=== PATIENT | female | born 2000 | race Hispanic/Latino ===

== ENCOUNTER 2025-03-16 15:21 | Inpatient (IN) | payer OTHER, SELFPAY ==
[2025-03-16 15:56] VITALS: BMI 45.5
[2025-03-16] MEDS ORDERED: hydrALAZINE 20 MG/ML VIAL SLOW IVP PRN ×3 (16:08→20:52)
[2025-03-16 16:35] LABS: #Basophils 0.04 10x3/uL (0.0-0.2); #Eosinophils 0.13 10x3/uL (0.0-0.5); #Monocytes 0.59 10x3/uL (0.0-1.1); #Neutrophils 6.42 10x3/uL (1.5-8.4); %Basophils 0.4 % (0.0-2.0); %Eosinophils 1.3 % (0.0-6.0); %Lymphocytes 28.6 % (18.0-47.0); %Monocytes 5.8 % (0.0-10.0); %Neutrophils 63.5 % (40.0-75.0); Hematocrit 38.3 % (34.9-44.5); Hemoglobin 12.7 g/dL (12.0-15.5); Mean Corpuscular Hemoglobin 26.3 pg (27.0-33.0); Mean Corpuscular Volume 79.5 fL (81.6-98.3); Platelet Count 275 10x3/uL (150-450); Red Blood Cell (RBC) Count 4.82 10x6/uL (3.90-5.03); White Blood Cell (WBC) Count 10.11 10x3/uL (3.5-10.5)
[2025-03-16 16:38] LABS: Protein, Urine Random Quant 28.0 mg/dL (1-14)
[2025-03-16 16:58] LABS: ALT (SGPT) 7 U/L (Less than 34); AST (SGOT) 22 U/L (11-34); Albumin 2.9 g/dL (3.1-4.5); Alkaline Phosphatase 247 U/L (40-110); Anion Gap 12 mmol/L (10-20); BUN (Urea Nitrogen) 9 mg/dL (7.0-18.7); Bilirubin, Total 0.3 mg/dL (0.3-1.2); Calc. Creatinine Clearance 302 mL/min (70-130); Calcium 8.8 mg/dL (7.8-10.44); Carbon Dioxide 19 mmol/L (22-29); Chloride 105 mmol/L (98-107); Globulin 4.1 g/dL (2.4-3.5); Glucose 73 mg/dL (70-105); Potassium 4.2 mmol/L (3.5-5.1); Sodium 132 mmol/L (136-145)
[2025-03-16] MEDS ORDERED: Ibuprofen 800 MG TAB PO PRN (18:19)
[2025-03-16] MEDS ORDERED: Ondansetron PF 4 MG/2 ML Vial IVP PRN ×2 (18:19→20:12)
[2025-03-16] MEDS ORDERED: Lidocaine 1% (PF) 30 ML VIAL SC PRN (18:19)
[2025-03-16] MEDS ORDERED: Diphenoxylate HCl/Atropine Tablet PO PRN (18:19)
[2025-03-16] MEDS ORDERED: HYDROcodone/Acetaminophen 5/325 mg Tablet PO PRN ×2 (18:19)
[2025-03-16] MEDS ORDERED: Carboprost 250 MCG/ML AMP IM PRN (18:19)
[2025-03-16] MEDS ORDERED: Tranexamic Acid 1,000 MG/10 ML VIAL IVP PRN (18:19)
[2025-03-16] MEDS ORDERED: Famotidine/PF 20 mg/2ml Vial SLOW IVP PRN (18:26)
[2025-03-16] MEDS ORDERED: Bicitra 30 ML UDCUP PO PRN (18:26)
[2025-03-16] MEDS ORDERED: Oxytocin 30 units/NS 500 ML 500 ML IV SCH ×2 (18:30→22:14)
[2025-03-16] MEDS: fentaNYL/Ropivacaine Epidural 100 ML ONE (19:56)
[2025-03-16] MEDS ORDERED: Acetaminophen 325 MG TAB PO PRN (20:12)
[2025-03-16] MEDS ORDERED: diphenhydrAMINE 50 MG/ML VIAL IVP PRN (20:12)
[2025-03-16] MEDS ORDERED: Communication Order-Pharmacy FS SCH (20:15)
[2025-03-16 20:29] LABS: Hep B Surf Ag - L&D Non-Reactive S/CO (NonReactive)
[2025-03-16 20:35] LABS: Syphilis Antibody Index 0.07 S/CO (<1.00 Non-Reactive)
[2025-03-16] MEDS ORDERED: Calcium Gluc 4.6 MEQ/10 ML (100 MG/ML) SLOW IVP PRN (20:52)
[2025-03-16] MEDS: Magnesium Sulfate 20 gm/500 ml 20 GM/500 ML BAG IVPB SCH (21:00)
[2025-03-16] MEDS: Mineral Oil ENEMA PR SCH (21:25)
[2025-03-16 21:56] LABS: Magnesium 1.7 mg/dL (1.6-2.6)
[2025-03-17] MEDS ORDERED: fentaNYL/Ropivacaine Epidural 100 ML ONE (07:42)
[2025-03-17] MEDS: fentaNYL 2 mcg/Ropivacaine 0.2% Epidural 100 ML CADD EPIDURAL SCH (07:43)
[2025-03-17] MEDS: Magnesium Sulfate 20 gm/500 ml 20 GM/500 ML BAG ONE (11:39)
[2025-03-18] MEDS ORDERED: diphenhydrAMINE 50 MG/ML VIAL IVP PRN ×2 (07:02→11:22)
[2025-03-18] MEDS ORDERED: Ondansetron PF 4 MG/2 ML Vial IVP PRN ×4 (07:02→11:22)
[2025-03-18] MEDS: fentaNYL/Ropivacaine Epidural 100 ML ONE (07:02)
[2025-03-18] MEDS ORDERED: fentaNYL 2 mcg/Ropivacaine 0.2% Epidural 100 ML CADD EPIDURAL SCH (07:15)
[2025-03-18] MEDS ORDERED: Communication Order-Pharmacy FS SCH ×2 (07:15→11:30)
[2025-03-18] MEDS: Acetaminophen 325 MG TAB PO PRN (08:44)
[2025-03-18 08:55] LABS: ALT (SGPT) 8 U/L (Less than 34); AST (SGOT) 20 U/L (11-34); Albumin 2.5 g/dL (3.1-4.5); Alkaline Phosphatase 227 U/L (40-110); Anion Gap 15 mmol/L (10-20); BUN (Urea Nitrogen) 8 mg/dL (7.0-18.7); Bilirubin, Total 0.7 mg/dL (0.3-1.2); Calc. Creatinine Clearance 250 mL/min (70-130); Calcium 8.1 mg/dL (7.8-10.44); Carbon Dioxide 17 mmol/L (22-29); Chloride 105 mmol/L (98-107); Globulin 3.6 g/dL (2.4-3.5); Glucose 103 mg/dL (70-105); Magnesium 3.2 mg/dL (1.6-2.6); Potassium 3.6 mmol/L (3.5-5.1); Sodium 133 mmol/L (136-145)
[2025-03-18] MEDS ORDERED: Azithromycin 500 MG in Sodium Chloride 0.9% 250 ML 250 ML IVPB SCH (09:00)
[2025-03-18 10:18] LABS: Analyzer IN Cardio CS NICU; RapidComm Collect By CBN
[2025-03-18 10:21] LABS: Analyzer IN Cardio CS NICU; RapidComm Collect By CBN; pH (Cord, venous) 7.320 (7.250-7.350)
[2025-03-18] MEDS ORDERED: Bupivacaine/Epinephrine 0.25% 30 ML VIAL ONE (11:00)
[2025-03-18] MEDS ORDERED: Boostrix 0.5 ML (Tdap) VIAL (>/=7 yrs of age) IM ONE (11:08)
[2025-03-18] MEDS ORDERED: hydrALAZINE 20 MG/ML VIAL SLOW IVP PRN (11:08)
[2025-03-18] MEDS ORDERED: Meperidine HCl/PF 25 MG (1 mL) VIAL SLOW IVP PRN (11:22)
[2025-03-18] MEDS ORDERED: Diphenoxylate HCl/Atropine Tablet PO PRN (11:30)
[2025-03-18] MEDS: Diphenoxylate HCl/Atropine Tablet PO PRN (11:45)
[2025-03-18] MEDS ORDERED: Ketorolac Tromethamine 30 MG (1 mL) VIAL IVP SCH (12:00)
[2025-03-18] MEDS: GENTAMICIN IVPB SCH (12:42)
[2025-03-18] MEDS: SODIUM CHLORIDE IVPB SCH (12:42)
[2025-03-18] MEDS: ADMIXTURE FEE IVPB SCH (12:42)
[2025-03-18] MEDS: Furosemide 40 MG (4 mL) VIAL SLOW IVP SCH (13:56)
[2025-03-18] MEDS: Ketorolac Tromethamine 30 MG (1 mL) VIAL IVP PRN (18:02)
[2025-03-18] MEDS: Clindamycin/D5W 900 MG in Premix 1 BAG IVPB SCH (18:31)
[2025-03-18] MEDS: HYDROcodone/Acetaminophen 5/325 mg Tablet PO PRN (22:18)
[2025-03-19] MEDS: Azithromycin 500 MG VIAL ONE (00:41)
[2025-03-19] MEDS: Oxytocin 10 UNITS/ML VIAL ONE ×2 (00:41→00:48)
[2025-03-19] MEDS: Ketorolac Tromethamine 30 MG (1 mL) VIAL ONE (00:42)
[2025-03-19] MEDS: Diphenoxylate HCl/Atropine Tablet PO SCH (00:42)
[2025-03-19] MEDS: Lidocaine 2% MPF 10 ML AMP (For Epidural Use) ONE (00:48)
[2025-03-19] MEDS: Ondansetron PF 4 MG/2 ML Vial ONE (00:48)
[2025-03-19] MEDS: PHENYLEPHRINE-NS 100 MCG/ML 10 ML SYRINGE ONE (00:48)
[2025-03-19] MEDS: Simethicone Chewable 80 MG TAB PO PRN ×2 (02:10→21:01)
[2025-03-19 05:03] LABS: Hematocrit 33.0 % (34.9-44.5); Hemoglobin 10.7 g/dL (12.0-15.5); Mean Corpuscular Hemoglobin 26.4 pg (27.0-33.0); Mean Corpuscular Volume 81.5 fL (81.6-98.3); Platelet Count 205 10x3/uL (150-450); Red Blood Cell (RBC) Count 4.05 10x6/uL (3.90-5.03); White Blood Cell (WBC) Count 14.16 10x3/uL (3.5-10.5)
[2025-03-19] MEDS: Magnesium Sulfate 20 gm/500 ml 20 GM/500 ML BAG IVPB SCH (08:04)
[2025-03-19] MEDS ORDERED: Magnesium Sulfate 20 gm/500 ml 20 GM/500 ML BAG IVPB SCH (08:15)
[2025-03-19] MEDS: Ferrous Sulfate 325 MG TAB PO SCH (09:34)
[2025-03-19] MEDS ORDERED: Ondansetron PF 4 MG/2 ML Vial IVP PRN (10:18)
[2025-03-19] MEDS ORDERED: diphenhydrAMINE 25 MG CAP PO PRN (10:18)
[2025-03-19] MEDS ORDERED: Acetaminophen 325 MG TAB PO PRN (10:18)
[2025-03-19] MEDS ORDERED: Methylergonovine 0.2 MG/ML VIAL IM PRN (10:18)
[2025-03-19] MEDS ORDERED: hydrALAZINE 20 MG/ML VIAL SLOW IVP PRN (10:18)
[2025-03-19] MEDS ORDERED: Oxytocin 30 units/NS 500 ML 500 ML IV SCH (10:30)
[2025-03-19] MEDS ORDERED: Boostrix 0.5 ML (Tdap) VIAL (>/=7 yrs of age) IM ONE (15:00)
[2025-03-19] MEDS: Magnesium Sulfate 20 gm/500 ml 20 GM/500 ML BAG ONE (15:55)
[2025-03-19] MEDS: HYDROcodone/Acetaminophen 5/325 mg Tablet PO PRN (16:00)
[2025-03-19] MEDS: Ibuprofen 800 MG TAB PO SCH (21:01)
[2025-03-19] MEDS ORDERED: Ibuprofen 800 MG TAB PO SCH (22:00)
[2025-03-20] MEDS: Ferrous Sulfate 325 MG TAB PO SCH (05:08)
[2025-03-20] MEDS ORDERED: Ibuprofen 800 MG TAB PO SCH (22:00)
[2025-03-21 07:52] VITALS: BP 135/74; TEMP 98
== END 2025-03-21 11:50 | disposition home or self-care (01) | DRG 786 ==
LOC: CSHLD/OP 15:21 → CSHLD 18:20 → CSHPP 03-19 14:16
PROVIDERS: ADMIT Obstetrics & Gynecology; ATTEND Obstetrics & Gynecology
PROC: 10907ZC Drainage of Amniotic Fluid, Therapeutic from Products of Conception, Via Natural or Artificial Opening (ICD-10-PCS; principal; 2025-03-16)
PROC: 10H07YZ Insertion of Other Device into Products of Conception, Via Natural or Artificial Opening (ICD-10-PCS; 2025-03-16)
PROC: 10D00Z1 Extraction of Products of Conception, Low, Open Approach (ICD-10-PCS; 2025-03-18)
PROC: 3E03329 Introduction of Other Anti-infective into Peripheral Vein, Percutaneous Approach (ICD-10-PCS; 2025-03-18)
DX: O14.14 Severe pre-eclampsia complicating childbirth (principal); O41.1230 Chorioamnionitis, third trimester, not applicable or unspecified; O32.1XX0 Maternal care for breech presentation, not applicable or unspecified; Z90.89 Acquired absence of other organs; Z3A.39 39 weeks gestation of pregnancy; Z37.0 Single live birth; O99.214 Obesity complicating childbirth; O76 Abnormality in fetal heart rate and rhythm complicating labor and delivery; O99.892 Other specified diseases and conditions complicating childbirth; R00.0 Tachycardia, unspecified
CPT/HCPCS: 36415; 51702; 59412; 80053; 82570; 82805; 83605; 83735; 84156; 85025; 85027; 86780; 86850; 86900; 86901; 87040; 87340; 88307; 99285; J0290; J1580; J1885; J1940; J2274; J2405; J2550; J2590; J3475; J3490